=== PATIENT | female | born 1980 | race Asian ===

== ENCOUNTER 2024-05-11 21:23 | Inpatient (IN) | payer MEDICAID ==
[~2024-05-11] VITALS: Ht 152.4 cm; Wt 46.3 kg
[2024-05-11] MEDS ORDERED: iohexol 350MG/ML 100ml bottle IV ONE (21:37)
[2024-05-11] MEDS: nitroGLYCERIN 0.2mg/hour patch TD ONE (22:00)
[2024-05-11] MEDS ORDERED: NO HOME MEDS (22:02)
[2024-05-11 22:04] LABS: BASOPHILS # (AUTO) 0.1 X10'3 (0-0.2); BASOPHILS % (AUTO) 0.5 % (0-1); EOSINOPHILS % (AUTO) 0.1 % (0-6); HEMATOCRIT 33.9 % (35.0-45.0); HEMOGLOBIN 11.3 g/dl (12.0-16.0); LYMPHOCYTES # (AUTO) 1.1 X10'3 (1.1-4.8); LYMPHOCYTES % (AUTO) 8.7 % (21-51); MEAN CORPUSCULAR HEMOGLOBIN 27.2 PG (27.0-31.0); MEAN CORPUSCULAR HGB CONC 33.5 g/dL (33.0-36.5); MEAN CORPUSCULAR VOLUME 81.2 FL (78-98); MEAN PLATELET VOLUME 8.2 FL (7.4-10.4); MONOCYTES # (AUTO) 0.6 X10'3 (0-0.9); MONOCYTES % (AUTO) 4.8 % (2-12); NEUTROPHILS # (AUTO) 11.1 X10'3 (1.8-7.7); NEUTROPHILS % (AUTO) 85.9 % (42-75); PLATELET COUNT 180 X10'3 (140-440); RED BLOOD COUNT 4.17 X10'6 (4.20-5.60); RED CELL DISTRIBUTION WIDTH 16.5 % (11.5-14.5); WHITE BLOOD COUNT 12.9 X10'3 (4.5-11.0)
[2024-05-11] MEDS: aspirin 81mg tab.chew PO ONE (22:10)
[2024-05-11 22:23] LABS: ALBUMIN 3.2 G/DL (3.4-5.0); ANION GAP 8 (8-16); BLOOD UREA NITROGEN 25 MG/DL (7-18); BUN/CREATININE RATIO 15.7 (10.0-20.0); CALCIUM 8.8 MG/DL (8.5-10.1); CHLORIDE 94 MMOL/L (99-107); CREATININE 1.59 MG/DL (0.40-0.90); GLUCOSE 126 MG/DL (70-104); MAGNESIUM 1.8 MG/DL (1.5-2.4); SODIUM 131 MMOL/L (135-145); TOTAL CARBON DIOXIDE 29.3 MMOL/L (24-32); eGFR 35 ML/MIN
[2024-05-11 22:43] LABS: POTASSIUM 2.4 MMOL/L (3.5-5.1)
[2024-05-11] MEDS ORDERED: heparin 10,000 units/1 ML INJ IV ONE ×2 (22:55→23:50)
[2024-05-11] MEDS: normal saline 1000ml 1,000 ML IV ONE (23:05)
[2024-05-11 23:16] LABS: APTT 21 SECONDS (22-32); PROTHROMBIN TIME 10.2 SECONDS (9.0-12.0)
[2024-05-11 23:18] LABS: ALANINE AMINOTRANSFERASE 31 U/L (12-78); ALBUMIN/GLOBULIN RATIO 0.9 (1.1-1.5); ALKALINE PHOSPHATASE 90 IU/L (46-116); ASPARTATE AMINO TRANSFERASE 149 U/L (10-37); BILIRUBIN,DIRECT 0.1 MG/DL (0-0.3); BILIRUBIN,TOTAL 0.5 MG/DL (0.1-1.0); PRO BRAIN NATRIURETIC PEPTIDE 29358 PG/ML (0-125); TOTAL PROTEIN 6.9 G/DL (6.4-8.2)
[2024-05-11] MEDS: heparin 10,000 units/1 ML INJ IV ONE (23:31)
[2024-05-11] MEDS: metoprolol tartrate 1mg/ml inj IV SCH (23:32)
[2024-05-11] MEDS: metoprolol tartrate 50mg tablet PO ONE (23:33)
[2024-05-11] MEDS: MESSAGE TO NURSING IV ONE (23:37)
[2024-05-11] MEDS: heparin 25,000 UNIT/250ml bag 250 ML IV PRN (23:37)
[2024-05-11 23:47] LABS: URINE AMPHETAMINE SCREEN NEGATIVE (Neg); URINE BARBITUATE SCREEN NEGATIVE (Neg); URINE BENZODIAZEPINES SCREEN NEGATIVE (Neg); URINE CANNABINOID SCREEN NEGATIVE (Neg); URINE COCAINE SCREEN NEGATIVE (Neg); URINE METHADONE SCREEN NEGATIVE (Neg); URINE OPIATE SCREEN NEGATIVE (Neg); URINE PHENCYCLIDINE SCREEN NEGATIVE (Neg)
[2024-05-11] MEDS ORDERED: heparin 25,000 UNIT/250ml bag 250 ML IV PRN (23:50)
[2024-05-11] MEDS ORDERED: heparin 10,000 units/1 ML INJ IV PRN (23:50)
[2024-05-12] VITALS (29 sets, daily range): BP systolic 129–209; BP diastolic 71–122; PULSE 63–98; RESP 12–20; TEMP 97.4–98.7; O2SAT 96–99
[2024-05-12] MEDS ORDERED: magnesium sulf-water 4G/100mL 100 ML IV PRN (00:35)
[2024-05-12] MEDS ORDERED: ondansetron/PF 4mg/2ml inj IV PRN (00:35)
[2024-05-12] MEDS ORDERED: acetaminophen 325mg tablet PO PRN ×2 (00:35→10:35)
[2024-05-12] MEDS ORDERED: docusate sod 100mg capsule PO PRN (00:35)
[2024-05-12] MEDS ORDERED: magnesium sulf-water 2g/50mL 50 ML IV PRN (00:35)
[2024-05-12] MEDS ORDERED: mag hydrox/Alum hydrox/simeth 30ml oral suspension PO PRN (00:35)
[2024-05-12] MEDS ORDERED: magnesium Cl slow-release 64mg tablet PO PRN (00:35)
[2024-05-12] MEDS ORDERED: morphine 2 MG/ML inj. syringe IV PRN ×2 (00:35)
[2024-05-12 01:08] LABS: URINE HCG NEGATIVE (NEG)
[2024-05-12 01:09] LABS: BASOPHILS % (AUTO) 0.2 % (0-1); EOSINOPHILS # (AUTO) 0.1 X10'3 (0-0.9); EOSINOPHILS % (AUTO) 0.3 % (0-6); HEMOGLOBIN 10.1 g/dl (12.0-16.0); LYMPHOCYTES # (AUTO) 1.2 X10'3 (1.1-4.8); LYMPHOCYTES % (AUTO) 7.1 % (21-51); MEAN CORPUSCULAR HEMOGLOBIN 27.6 PG (27.0-31.0); MEAN CORPUSCULAR HGB CONC 33.6 g/dL (33.0-36.5); MEAN CORPUSCULAR VOLUME 82.2 FL (78-98); MEAN PLATELET VOLUME 8.4 FL (7.4-10.4); MONOCYTES # (AUTO) 0.8 X10'3 (0-0.9); MONOCYTES % (AUTO) 5.1 % (2-12); NEUTROPHILS # (AUTO) 14.3 X10'3 (1.8-7.7); NEUTROPHILS % (AUTO) 87.3 % (42-75); PLATELET COUNT 170 X10'3 (140-440); RED BLOOD COUNT 3.65 X10'6 (4.20-5.60); RED CELL DISTRIBUTION WIDTH 16.2 % (11.5-14.5); WHITE BLOOD COUNT 16.4 X10'3 (4.5-11.0)
[2024-05-12] MEDS: potassium Cl 40MEQ/1/2NS 520ml 520 ML IV PRN (02:31)
[2024-05-12 02:58] LABS: HEMOGLOBIN A1C 4.9 % (4.5-6.2)
[2024-05-12] MEDS: potassium Cl 20 mEq SR tablet PO PRN ×2 (03:02→19:51)
[2024-05-12 03:08] LABS: MAGNESIUM 1.8 MG/DL (1.5-2.4); THYROID STIMULATING HORMONE 0.77 ulU/ml (0.34-4.50)
[2024-05-12 03:33] LABS: POTASSIUM 2.1 MMOL/L (3.5-5.1)
[2024-05-12] MEDS: normal saline 1000ml 1,000 ML IV SCH (04:10)
[2024-05-12] MEDS: heparin 10,000 units/1 ML INJ IV PRN (07:27)
[2024-05-12] MEDS: MESSAGE TO NURSING IV ONE ×2 (07:28→20:20)
[2024-05-12 07:37] LABS: % IRON SATURATION 11 % (11-46); IRON 33 UG/DL (49-151); TOTAL IRON BINDING CAPACITY 290 UG/DL (259-388)
[2024-05-12 07:56] LABS: ANION GAP 8 (8-16); CHLORIDE 96 MMOL/L (99-107); FERRITIN 29 NG/ML (8-252); SODIUM 133 MMOL/L (135-145); TOTAL CARBON DIOXIDE 29.1 MMOL/L (24-32)
[2024-05-12] MEDS: K and/or MAG REPLACEMENT MC SCH (08:00)
[2024-05-12 08:08] LABS: POTASSIUM 2.7 MMOL/L (3.5-5.1)
[2024-05-12 09:00] LABS: ALBUMIN 2.7 G/DL (3.4-5.0); BLOOD UREA NITROGEN 26 MG/DL (7-18); BUN/CREATININE RATIO 17.4 (10.0-20.0); CALCIUM 8.2 MG/DL (8.5-10.1); CREATININE 1.49 MG/DL (0.40-0.90); GLUCOSE 98 MG/DL (70-104); eCRCL 34 ML/MIN; eGFR 38 ML/MIN
[2024-05-12] MEDS: guaiFENesin ER 600mg tablet PO SCH (10:35)
[2024-05-12] MEDS ORDERED: sodium bicarbonate (8.4%) inj. 150 MEQ in sodium chloride 0.45% 850 ML IV SCH (10:35)
[2024-05-12] MEDS: nitroGLYCERIN-Tridil 50MG/D5W 250 ML IV SCH (10:53)
[2024-05-12] MEDS: metoprolol tartrate 25mg tablet PO SCH (11:16)
[2024-05-12] MEDS ORDERED: LIDOcaine 1% (10mg/ml) 2ml vial ONE (11:24)
[2024-05-12] MEDS ORDERED: fentaNYL/PF 50MCG/1 ML 2ML syringe ONE (11:24)
[2024-05-12] MEDS ORDERED: verapamil 2.5 mg/ml inj IV ONE (11:24)
[2024-05-12] MEDS ORDERED: midazolam 1 mg/ML 2ml injection ONE (11:24)
[2024-05-12] MEDS ORDERED: heparin 1,000unit/ml 10ml vial 10 ML ONE (11:25)
[2024-05-12] MEDS ORDERED: iohexol 350MG/ML 100ml bottle IV ONE ×2 (11:25→12:39)
[2024-05-12] MEDS ORDERED: nitroGLYCERIN 500mcg/5mL D5W 5 ML IV ONE ×2 (11:25→12:44)
[2024-05-12] MEDS ORDERED: iohexol 350 MG/ML 50ML vial IV ONE (11:25)
[2024-05-12] MEDS: acetylcysteine 200 MG/ml 4ml vial PO SCH (11:27)
[2024-05-12] MEDS ORDERED: clopidogrel 300mg tablet ONE (13:30)
[2024-05-12] MEDS ORDERED: aspirin 325mg tablet ONE (13:30)
[2024-05-12] MEDS ORDERED: DOBUTamine-DoBUTrex 500mg/D5W 250 ML IV ONE (13:31)
[2024-05-12 13:33] LABS: CHOL/HDL RATIO 3.4 (0.00-4.99); CHOLESTEROL 235 MG/DL (0-200); HDL CHOLESTEROL 70 MG/DL (35-60); LDL CHOLESTEROL 134 MG/DL (50-100); TRIGLYCERIDES 147 MG/DL (20-135)
[2024-05-12 13:42] LABS: ETHANOL < 10 MG/DL (<10)
[2024-05-12] MEDS: sodium bicarbonate 1meq/ml inj 150 ML in sodium chloride 0.45% 1,000 ML IV SCH (14:35)
[2024-05-12] MEDS: furosemide 20 MG/2 ML vial IV ONE (15:45)
[2024-05-12] MEDS: DOBUTamine 2000 MCG/250ML BAG IV SCH (16:02)
[2024-05-12 16:04] LABS: ISTAT HGB MIX 9.2 g/dl (12.0-16.0); ISTAT Hct MIX 27 %PCV (35-45); ISTAT O2 SATURATION MIX VENOUS 48 % (60-80); ISTAT SOURCE BLNK
[2024-05-12 16:04] LABS: ISTAT HGB ART 9.2 g/dl (12.0-16.0); ISTAT Hct ART 27 %PCV (35-45); ISTAT O2 SATURATION ARTERIAL 95 % (95-98); ISTAT SOURCE BLNK
[2024-05-12 18:25] LABS: ALBUMIN 2.4 G/DL (3.4-5.0); ANION GAP 6 (8-16); BLOOD UREA NITROGEN 26 MG/DL (7-18); BUN/CREATININE RATIO 17.1 (10.0-20.0); CALCIUM 7.8 MG/DL (8.5-10.1); CHLORIDE 98 MMOL/L (99-107); CREATININE 1.52 MG/DL (0.40-0.90); GLUCOSE 155 MG/DL (70-104); POTASSIUM 3.2 MMOL/L (3.5-5.1); SODIUM 134 MMOL/L (135-145); TOTAL CARBON DIOXIDE 30.3 MMOL/L (24-32); eCRCL 34 ML/MIN; eGFR 37 ML/MIN
[2024-05-12] MEDS: atorvastatin 20mg tablet PO SCH (19:51)
[2024-05-12] MEDS: hydrALAZINE 20mg/ml inj. IV PRN (20:00)
[2024-05-12] MEDS ORDERED: acetylcysteine 200 MG/ml 4ml vial PO SCH (20:00)
[2024-05-13] VITALS (24 sets, daily range): BP systolic 123–187; BP diastolic 69–101; PULSE 65–106; RESP 10–17; TEMP 97–98.7; O2SAT 95–99
[2024-05-13 02:06] LABS: BASOPHILS % (AUTO) 0.4 % (0-1); EOSINOPHILS % (AUTO) 0.4 % (0-6); HEMATOCRIT 29.9 % (35.0-45.0); LYMPHOCYTES % (AUTO) 7.8 % (21-51); MEAN CORPUSCULAR HEMOGLOBIN 27.9 PG (27.0-31.0); MEAN CORPUSCULAR HGB CONC 33.5 g/dL (33.0-36.5); MEAN CORPUSCULAR VOLUME 83.3 FL (78-98); MEAN PLATELET VOLUME 8.3 FL (7.4-10.4); MONOCYTES # (AUTO) 0.7 X10'3 (0-0.9); MONOCYTES % (AUTO) 5.5 % (2-12); NEUTROPHILS # (AUTO) 10.8 X10'3 (1.8-7.7); NEUTROPHILS % (AUTO) 85.9 % (42-75); PLATELET COUNT 151 X10'3 (140-440); RED BLOOD COUNT 3.58 X10'6 (4.20-5.60); RED CELL DISTRIBUTION WIDTH 16.8 % (11.5-14.5); WHITE BLOOD COUNT 12.6 X10'3 (4.5-11.0)
[2024-05-13 02:28] LABS: ALANINE AMINOTRANSFERASE 50 U/L (12-78); ALBUMIN 2.9 G/DL (3.4-5.0); ALBUMIN/GLOBULIN RATIO 0.9 (1.1-1.5); ALKALINE PHOSPHATASE 78 IU/L (46-116); ANION GAP 6 (8-16); ASPARTATE AMINO TRANSFERASE 228 U/L (10-37); BILIRUBIN,TOTAL 0.5 MG/DL (0.1-1.0); BLOOD UREA NITROGEN 25 MG/DL (7-18); BUN/CREATININE RATIO 16.2 (10.0-20.0); CALCIUM 8.4 MG/DL (8.5-10.1); CHLORIDE 98 MMOL/L (99-107); CHOL/HDL RATIO 3.4 (0.00-4.99); CHOLESTEROL 255 MG/DL (0-200); CREATININE 1.54 MG/DL (0.40-0.90); GLUCOSE 128 MG/DL (70-104); HDL CHOLESTEROL 75 MG/DL (35-60); LDL CHOLESTEROL 137 MG/DL (50-100); MAGNESIUM 1.7 MG/DL (1.5-2.4); PRO BRAIN NATRIURETIC PEPTIDE 17991 PG/ML (0-125); SODIUM 138 MMOL/L (135-145); TOTAL CARBON DIOXIDE 34.2 MMOL/L (24-32); TOTAL PROTEIN 6.3 G/DL (6.4-8.2); TRIGLYCERIDES 168 MG/DL (20-135); eCRCL 33 ML/MIN; eGFR 36 ML/MIN
[2024-05-13 02:33] LABS: POTASSIUM 2.8 MMOL/L (3.5-5.1)
[2024-05-13] MEDS: MESSAGE TO NURSING IV ONE (03:07)
[2024-05-13] MEDS: labetalol 20mg/4ml (5mg/ml) syringe IV PRN (04:46)
[2024-05-13] MEDS: aspirin 81mg, enteric-coated 1 TAB TABLET.DR PO SCH (08:00)
[2024-05-13] MEDS ORDERED: clopidogrel 75mg tablet PO SCH ×2 (08:00→20:00)
[2024-05-13] MEDS ORDERED: heparin 1,000unit/ml 10ml vial 10 ML ONE (08:19)
[2024-05-13] MEDS ORDERED: LIDOcaine 1% (10mg/ml) 2ml vial ONE (08:19)
[2024-05-13] MEDS ORDERED: iohexol 350MG/ML 100ml bottle IV ONE ×2 (08:19→09:43)
[2024-05-13] MEDS ORDERED: verapamil 2.5 mg/ml inj IV ONE (08:19)
[2024-05-13] MEDS ORDERED: fentaNYL/PF 50MCG/1 ML 2ML syringe ONE (08:19)
[2024-05-13] MEDS ORDERED: midazolam 1 mg/ML 2ml injection ONE (08:19)
[2024-05-13] MEDS ORDERED: nitroGLYCERIN 500mcg/5mL D5W 5 ML IV ONE ×2 (08:25→09:47)
[2024-05-13] MEDS: clopidogrel 75mg tablet PO SCH (08:35)
[2024-05-13] MEDS ORDERED: iohexol 350 MG/ML 50ML vial IV ONE (09:28)
[2024-05-13] MEDS ORDERED: clopidogrel 300mg tablet ONE (10:03)
[2024-05-13] MEDS ORDERED: hydrALAZINE 20mg/ml inj. ONE (10:16)
[2024-05-13] MEDS ORDERED: metoprolol tartrate 25mg tablet PO SCH (10:32)
[2024-05-13] MEDS: potassium Cl 20 mEq SR tablet PO ONE (11:24)
[2024-05-13] MEDS: metoprolol tartrate 25mg tablet PO SCH (11:24)
[2024-05-13] MEDS: furosemide 20 MG/2 ML vial IV ONE (11:24)
[2024-05-13] MEDS: losartan 50mg tablet PO SCH (11:52)
[2024-05-13 13:37] LABS: ACTH, PLASMA 29.6 pg/mL (7.2-63.3)
[2024-05-13] MEDS: spironolactone 25 MG tablet PO ONE (13:47)
[2024-05-13] MEDS: heparin, porcine 5000 units/ml vial SQ SCH (19:15)
[2024-05-13] MEDS: hydrALAZINE 20mg/ml inj. IV PRN (19:32)
[2024-05-14] VITALS (23 sets, daily range): BP systolic 113–176; BP diastolic 11–98; PULSE 64–99; RESP 10–19; TEMP 97.3–98.1; O2SAT 96–98
[2024-05-14 00:26] LABS: ABG BASE EXCESS 8.3 mmol/L (-2.0-3.0); ABG OXYGEN SATURATION 97.6 % (94.0-98.0); ABG PCO2 (T) 34.1 mmHg (32.0-45.0); ABG PH (T) 7.574 (7.350-7.450); ABG PO2 (T) 88.5 mmHg (83.0-108.0); ALLEN'S TEST Modified; FCOHb 1.1 % (0.5-1.5); FHHb 2.4 % (0.0-5.0); FMetHb 0.3 % (0.0-1.5); FO2Hb 96.2 % (94.0-98.0); MODE ROOM AIR; PATIENT TEMPERATURE 36.3; TOTAL HEMOGLOBIN 8.4 G/dl (12.0-16.0)
[2024-05-14 06:37] LABS: BASOPHILS % (AUTO) 0.5 % (0-1); EOSINOPHILS # (AUTO) 0.1 X10'3 (0-0.9); EOSINOPHILS % (AUTO) 0.9 % (0-6); HEMOGLOBIN 7.9 g/dl (12.0-16.0); LYMPHOCYTES % (AUTO) 11.6 % (21-51); MEAN CORPUSCULAR HEMOGLOBIN 27.8 PG (27.0-31.0); MEAN CORPUSCULAR HGB CONC 32.9 g/dL (33.0-36.5); MEAN CORPUSCULAR VOLUME 84.5 FL (78-98); MEAN PLATELET VOLUME 8.7 FL (7.4-10.4); MONOCYTES # (AUTO) 0.6 X10'3 (0-0.9); MONOCYTES % (AUTO) 7.2 % (2-12); NEUTROPHILS # (AUTO) 6.7 X10'3 (1.8-7.7); NEUTROPHILS % (AUTO) 79.8 % (42-75); PLATELET COUNT 136 X10'3 (140-440); RED BLOOD COUNT 2.84 X10'6 (4.20-5.60); WHITE BLOOD COUNT 8.4 X10'3 (4.5-11.0)
[2024-05-14 07:26] LABS: ALANINE AMINOTRANSFERASE 35 U/L (12-78); ALBUMIN 2.6 G/DL (3.4-5.0); ALBUMIN/GLOBULIN RATIO 0.8 (1.1-1.5); ALKALINE PHOSPHATASE 60 IU/L (46-116); ANION GAP 6 (8-16); ASPARTATE AMINO TRANSFERASE 99 U/L (10-37); BILIRUBIN,TOTAL 0.5 MG/DL (0.1-1.0); BLOOD UREA NITROGEN 19 MG/DL (7-18); BUN/CREATININE RATIO 12.5 (10.0-20.0); CALCIUM 8.6 MG/DL (8.5-10.1); CHLORIDE 104 MMOL/L (99-107); CREATININE 1.52 MG/DL (0.40-0.90); GLUCOSE 99 MG/DL (70-104); MAGNESIUM 1.8 MG/DL (1.5-2.4); POTASSIUM 3.5 MMOL/L (3.5-5.1); SODIUM 144 MMOL/L (135-145); THYROID STIMULATING HORMONE 0.89 ulU/ml (0.34-4.50); TOTAL CARBON DIOXIDE 34.2 MMOL/L (24-32); TOTAL PROTEIN 5.8 G/DL (6.4-8.2); eCRCL 34 ML/MIN; eGFR 37 ML/MIN
[2024-05-14] MEDS: spironolactone 25 MG tablet PO SCH (09:32)
[2024-05-14] MEDS: LidoCAINE 2% Topical Jelly 11mL syringe (UROJET) TOP ONE (11:35)
[2024-05-14] MEDS: LORazepam 2 mg/ml vial IV ONE (12:55)
[2024-05-14] MEDS: diazepam inj 5 MG/ML inj. IV ONE (13:50)
[2024-05-14 16:41] LABS: BILIRUBIN,URINE NEGATIVE (Neg); CLARITY,URINE CLEAR (Clear); COLOR,URINE YELLOW (Yellow); GLUCOSE, URINE NEGATIVE (Neg); KETONES,URINE NEGATIVE (Neg); LEUKOCYTE ESTERASE ,URINE NEGATIVE (Neg); NITRITES, URINE NEGATIVE (Neg); OCCULT BLOOD,URINE TRACE-INTACT (Neg); PH,URINE 8.5 (4.8-8.0); PROTEIN,URINE 100 mg/dl (Neg)
[2024-05-14 16:47] LABS: UA COLLECTION TYPE NON-SPECIFIED
[2024-05-14 16:48] LABS: AMORPHOUS PHOSPHATES 1+; BACTERIA,URINE NONE SEEN /HPF (Neg); RBC,URINE 0-2 /HPF (0-2); SQUAMOUS EPITHELIAL CELL,UR FEW /LPF (FEW); WBC,URINE 0-4 /HPF (0-4)
[2024-05-14 16:53] LABS: TOTAL PROTEIN,URINE RANDOM 93.4 MG/DL
[2024-05-14 18:46] LABS: BASOPHILS % (AUTO) 0.3 % (0-1); EOSINOPHILS # (AUTO) 0.2 X10'3 (0-0.9); EOSINOPHILS % (AUTO) 2.1 % (0-6); HEMATOCRIT 24.7 % (35.0-45.0); HEMOGLOBIN 8.1 g/dl (12.0-16.0); LYMPHOCYTES # (AUTO) 1.1 X10'3 (1.1-4.8); MEAN CORPUSCULAR HEMOGLOBIN 27.9 PG (27.0-31.0); MEAN CORPUSCULAR HGB CONC 32.8 g/dL (33.0-36.5); MEAN CORPUSCULAR VOLUME 85.2 FL (78-98); MEAN PLATELET VOLUME 8.4 FL (7.4-10.4); MONOCYTES # (AUTO) 0.6 X10'3 (0-0.9); MONOCYTES % (AUTO) 7.5 % (2-12); NEUTROPHILS # (AUTO) 6.4 X10'3 (1.8-7.7); NEUTROPHILS % (AUTO) 77.1 % (42-75); PLATELET COUNT 156 X10'3 (140-440); RED CELL DISTRIBUTION WIDTH 17.6 % (11.5-14.5); WHITE BLOOD COUNT 8.4 X10'3 (4.5-11.0)
[2024-05-14 19:11] LABS: ALANINE AMINOTRANSFERASE 31 U/L (12-78); ALBUMIN 2.6 G/DL (3.4-5.0); ALBUMIN/GLOBULIN RATIO 0.7 (1.1-1.5); ALKALINE PHOSPHATASE 65 IU/L (46-116); ANION GAP 4 (8-16); ASPARTATE AMINO TRANSFERASE 84 U/L (10-37); BILIRUBIN,TOTAL 0.5 MG/DL (0.1-1.0); BLOOD UREA NITROGEN 22 MG/DL (7-18); BUN/CREATININE RATIO 12.7 (10.0-20.0); CALCIUM 8.9 MG/DL (8.5-10.1); CHLORIDE 103 MMOL/L (99-107); CREATININE 1.73 MG/DL (0.40-0.90); GLUCOSE 103 MG/DL (70-104); POTASSIUM 3.5 MMOL/L (3.5-5.1); SODIUM 138 MMOL/L (135-145); TOTAL CARBON DIOXIDE 30.7 MMOL/L (24-32); TOTAL PROTEIN 6.2 G/DL (6.4-8.2); eCRCL 30 ML/MIN; eGFR 32 ML/MIN
[2024-05-15] VITALS (10 sets, daily range): BP systolic 114–167; BP diastolic 65–100; PULSE 63–85; RESP 12–20; TEMP 97.5–98.8; O2SAT 96–99
[2024-05-15 06:49] LABS: BASOPHILS % (AUTO) 0.4 % (0-1); EOSINOPHILS # (AUTO) 0.2 X10'3 (0-0.9); EOSINOPHILS % (AUTO) 2.7 % (0-6); HEMATOCRIT 22.7 % (35.0-45.0); HEMOGLOBIN 7.5 g/dl (12.0-16.0); LYMPHOCYTES # (AUTO) 0.6 X10'3 (1.1-4.8); LYMPHOCYTES % (AUTO) 7.7 % (21-51); MEAN CORPUSCULAR VOLUME 84.9 FL (78-98); MEAN PLATELET VOLUME 8.5 FL (7.4-10.4); MONOCYTES # (AUTO) 0.4 X10'3 (0-0.9); MONOCYTES % (AUTO) 4.7 % (2-12); NEUTROPHILS # (AUTO) 6.9 X10'3 (1.8-7.7); NEUTROPHILS % (AUTO) 84.5 % (42-75); PLATELET COUNT 148 X10'3 (140-440); RED BLOOD COUNT 2.67 X10'6 (4.20-5.60); RED CELL DISTRIBUTION WIDTH 17.6 % (11.5-14.5); WHITE BLOOD COUNT 8.2 X10'3 (4.5-11.0)
[2024-05-15 07:31] LABS: ALANINE AMINOTRANSFERASE 38 U/L (12-78); ALBUMIN 2.6 G/DL (3.4-5.0); ALBUMIN/GLOBULIN RATIO 0.8 (1.1-1.5); ALKALINE PHOSPHATASE 62 IU/L (46-116); ANION GAP 8 (8-16); ASPARTATE AMINO TRANSFERASE 64 U/L (10-37); BILIRUBIN,TOTAL 0.5 MG/DL (0.1-1.0); BLOOD UREA NITROGEN 24 MG/DL (7-18); BUN/CREATININE RATIO 12.4 (10.0-20.0); CALCIUM 8.7 MG/DL (8.5-10.1); CHLORIDE 104 MMOL/L (99-107); CREATININE 1.93 MG/DL (0.40-0.90); GLUCOSE 92 MG/DL (70-104); MAGNESIUM 1.9 MG/DL (1.5-2.4); POTASSIUM 3.4 MMOL/L (3.5-5.1); SODIUM 143 MMOL/L (135-145); TOTAL CARBON DIOXIDE 31.5 MMOL/L (24-32); eCRCL 26 ML/MIN; eGFR 28 ML/MIN
[2024-05-15] MEDS: furosemide 20 MG/2 ML vial IV SCH (07:50)
[2024-05-15 11:29] LABS: LACTATE DEHYDROGENASE 784 U/L (81-234)
[2024-05-15] MEDS: diazepam inj 5 MG/ML inj. IV PRN (12:23)
[2024-05-15] MEDS: diazepam inj 5 MG/ML inj. IV ONE ×2 (15:50→18:14)
[2024-05-15] MEDS ORDERED: potassium Cl 20 mEq SR tablet PO PRN ×2 (16:15)
[2024-05-15] MEDS ORDERED: potassium Cl 40MEQ/1/2NS 520ml 520 ML IV PRN (16:15)
[2024-05-15] MEDS ORDERED: magnesium sulf-water 2g/50mL 50 ML IV PRN (16:15)
[2024-05-15] MEDS ORDERED: magnesium Cl slow-release 64mg tablet PO PRN (16:15)
[2024-05-15] MEDS ORDERED: magnesium sulf-water 4G/100mL 100 ML IV PRN (16:15)
[2024-05-15 20:03] LABS: BASOPHILS % (AUTO) 0.5 % (0-1); EOSINOPHILS # (AUTO) 0.3 X10'3 (0-0.9); EOSINOPHILS % (AUTO) 3.3 % (0-6); HEMATOCRIT 25.7 % (35.0-45.0); HEMOGLOBIN 8.5 g/dl (12.0-16.0); LYMPHOCYTES # (AUTO) 1.4 X10'3 (1.1-4.8); LYMPHOCYTES % (AUTO) 15.8 % (21-51); MEAN CORPUSCULAR HEMOGLOBIN 28.1 PG (27.0-31.0); MEAN CORPUSCULAR HGB CONC 33.1 g/dL (33.0-36.5); MEAN CORPUSCULAR VOLUME 84.9 FL (78-98); MEAN PLATELET VOLUME 8.8 FL (7.4-10.4); MONOCYTES # (AUTO) 0.4 X10'3 (0-0.9); MONOCYTES % (AUTO) 5.1 % (2-12); NEUTROPHILS # (AUTO) 6.5 X10'3 (1.8-7.7); NEUTROPHILS % (AUTO) 75.3 % (42-75); PLATELET COUNT 170 X10'3 (140-440); RED BLOOD COUNT 3.02 X10'6 (4.20-5.60); RED CELL DISTRIBUTION WIDTH 17.4 % (11.5-14.5); WHITE BLOOD COUNT 8.7 X10'3 (4.5-11.0)
[2024-05-16] VITALS (19 sets, daily range): BP systolic 111–193; BP diastolic 64–120; PULSE 59–176; RESP 11–19; TEMP 96.4–98; O2SAT 95–98
[2024-05-16] MEDS ORDERED: nitroGLYCERIN-Tridil 50MG/D5W 250 ML IV PRN ×3 (07:00→10:25)
[2024-05-16 07:38] LABS: RED BLOOD COUNT 2.91 X10'6 (4.20-5.60); RETICULOCYTE % (AUTO) 3.3 % (0.5-1.5)
[2024-05-16 07:47] LABS: BASOPHILS % (AUTO) 0.4 % (0-1); EOSINOPHILS # (AUTO) 0.3 X10'3 (0-0.9); EOSINOPHILS % (AUTO) 4.2 % (0-6); HEMATOCRIT 24.6 % (35.0-45.0); HEMOGLOBIN 8.1 g/dl (12.0-16.0); LYMPHOCYTES % (AUTO) 13.2 % (21-51); MEAN CORPUSCULAR HEMOGLOBIN 28.1 PG (27.0-31.0); MEAN CORPUSCULAR HGB CONC 32.9 g/dL (33.0-36.5); MEAN CORPUSCULAR VOLUME 85.5 FL (78-98); MONOCYTES # (AUTO) 0.5 X10'3 (0-0.9); MONOCYTES % (AUTO) 6.5 % (2-12); NEUTROPHILS # (AUTO) 5.9 X10'3 (1.8-7.7); NEUTROPHILS % (AUTO) 75.7 % (42-75); PLATELET COUNT 188 X10'3 (140-440); RED BLOOD COUNT 2.88 X10'6 (4.20-5.60); RED CELL DISTRIBUTION WIDTH 17.3 % (11.5-14.5); WHITE BLOOD COUNT 7.8 X10'3 (4.5-11.0)
[2024-05-16] MEDS: K and/or MAG REPLACEMENT MC SCH (08:00)
[2024-05-16 08:04] LABS: ALANINE AMINOTRANSFERASE 50 U/L (12-78); ALBUMIN 2.5 G/DL (3.4-5.0); ALBUMIN/GLOBULIN RATIO 0.7 (1.1-1.5); ALKALINE PHOSPHATASE 73 IU/L (46-116); ANION GAP 8 (8-16); ASPARTATE AMINO TRANSFERASE 72 U/L (10-37); BILIRUBIN,TOTAL 0.4 MG/DL (0.1-1.0); BLOOD UREA NITROGEN 32 MG/DL (7-18); BUN/CREATININE RATIO 13.7 (10.0-20.0); CALCIUM 8.1 MG/DL (8.5-10.1); CHLORIDE 104 MMOL/L (99-107); CREATININE 2.33 MG/DL (0.40-0.90); GLUCOSE 91 MG/DL (70-104); MAGNESIUM 1.9 MG/DL (1.5-2.4); POTASSIUM 3.6 MMOL/L (3.5-5.1); SODIUM 138 MMOL/L (135-145); TOTAL CARBON DIOXIDE 26.1 MMOL/L (24-32); TOTAL PROTEIN 6.3 G/DL (6.4-8.2); eCRCL 22 ML/MIN; eGFR 23 ML/MIN
[2024-05-16 08:12] LABS: COMPLEMENT C3, SERUM 96 mg/dL (82-167); COMPLEMENT C4, SERUM 31 mg/dL (12-38)
[2024-05-16] MEDS: aspirin 81mg, enteric-coated 1 TAB TABLET.DR PO SCH (09:33)
[2024-05-16] MEDS: amLODIPine 5mg tablet PO SCH (09:43)
[2024-05-16 11:12] LABS: METANEPHRINE, PL 39.1 pg/mL (0.0-88.0); NORMETANEPHRINE, PL 194.5 pg/mL (0.0-218.9)
[2024-05-16 11:12] LABS: ANTI-DSDNA ANTIBODIES 1 IU/mL (0-9); ANTINUCLEAR ANTIBODIES Negative (Negative)
[2024-05-16] MEDS: diazepam inj 5 MG/ML inj. IV ONE (14:46)
[2024-05-16] MEDS: iron sucrose complex injection 200 MG in normal saline 100ml IV soln 100 ML IV SCH (14:50)
[2024-05-16 15:55] LABS: PRO BRAIN NATRIURETIC PEPTIDE 8311 PG/ML (0-125)
[2024-05-16] MEDS: magnesium hydroxide 30ml (MOM) UD suspension PO PRN (17:16)
[2024-05-16] MEDS: spironolactone 25 MG tablet PO SCH (17:16)
[2024-05-16] MEDS: losartan 50mg tablet PO SCH (21:54)
[2024-05-17] VITALS (8 sets, daily range): BP systolic 119–147; BP diastolic 69–97; PULSE 57–70; RESP 10–17; TEMP 97.1–97.9; O2SAT 61–100
[2024-05-17 05:32] LABS: OCCULT BLOOD STOOL NEGATIVE (Neg)
[2024-05-17 06:25] LABS: BASOPHILS % (AUTO) 0.4 % (0-1); EOSINOPHILS # (AUTO) 0.3 X10'3 (0-0.9); EOSINOPHILS % (AUTO) 3.2 % (0-6); HEMATOCRIT 26.7 % (35.0-45.0); HEMOGLOBIN 8.8 g/dl (12.0-16.0); LYMPHOCYTES % (AUTO) 10.8 % (21-51); MEAN CORPUSCULAR HGB CONC 32.8 g/dL (33.0-36.5); MEAN CORPUSCULAR VOLUME 85.4 FL (78-98); MEAN PLATELET VOLUME 9.1 FL (7.4-10.4); MONOCYTES # (AUTO) 0.8 X10'3 (0-0.9); MONOCYTES % (AUTO) 8.3 % (2-12); NEUTROPHILS # (AUTO) 7.4 X10'3 (1.8-7.7); NEUTROPHILS % (AUTO) 77.3 % (42-75); PLATELET COUNT 209 X10'3 (140-440); RED BLOOD COUNT 3.13 X10'6 (4.20-5.60); RED CELL DISTRIBUTION WIDTH 17.4 % (11.5-14.5); WHITE BLOOD COUNT 9.5 X10'3 (4.5-11.0)
[2024-05-17 06:57] LABS: ALANINE AMINOTRANSFERASE 63 U/L (12-78); ALBUMIN 2.5 G/DL (3.4-5.0); ALBUMIN/GLOBULIN RATIO 0.7 (1.1-1.5); ALKALINE PHOSPHATASE 76 IU/L (46-116); ANION GAP 10 (8-16); ASPARTATE AMINO TRANSFERASE 65 U/L (10-37); BILIRUBIN,TOTAL 0.3 MG/DL (0.1-1.0); BLOOD UREA NITROGEN 31 MG/DL (7-18); BUN/CREATININE RATIO 13.4 (10.0-20.0); CALCIUM 8.3 MG/DL (8.5-10.1); CHLORIDE 103 MMOL/L (99-107); CREATININE 2.31 MG/DL (0.40-0.90); GLUCOSE 93 MG/DL (70-104); POTASSIUM 3.7 MMOL/L (3.5-5.1); SODIUM 137 MMOL/L (135-145); TOTAL CARBON DIOXIDE 23.9 MMOL/L (24-32); TOTAL PROTEIN 6.2 G/DL (6.4-8.2); eCRCL 22 ML/MIN; eGFR 23 ML/MIN
[2024-05-17] MEDS: amLODIPine 5mg tablet PO SCH (09:11)
[2024-05-17 13:24] LABS: ATYPICAL PANCA <1:20 titer (Neg:<1:20); CYTOPLASMIC (C-ANCA) <1:20 titer (Neg:<1:20); PERINUCLEAR (P-ANCA) <1:20 titer (Neg:<1:20)
[2024-05-18] VITALS (8 sets, daily range): BP systolic 108–138; BP diastolic 69–91; PULSE 58–68; RESP 12–18; TEMP 97–97.8; O2SAT 95–100
[2024-05-18 08:57] LABS: BASOPHILS % (AUTO) 0.5 % (0-1); EOSINOPHILS # (AUTO) 0.3 X10'3 (0-0.9); EOSINOPHILS % (AUTO) 4.4 % (0-6); HEMATOCRIT 28.6 % (35.0-45.0); HEMOGLOBIN 9.1 g/dl (12.0-16.0); LYMPHOCYTES # (AUTO) 1.3 X10'3 (1.1-4.8); LYMPHOCYTES % (AUTO) 20.2 % (21-51); MEAN CORPUSCULAR HEMOGLOBIN 27.6 PG (27.0-31.0); MEAN CORPUSCULAR VOLUME 86.2 FL (78-98); MEAN PLATELET VOLUME 8.7 FL (7.4-10.4); MONOCYTES # (AUTO) 0.5 X10'3 (0-0.9); MONOCYTES % (AUTO) 7.9 % (2-12); NEUTROPHILS # (AUTO) 4.3 X10'3 (1.8-7.7); PLATELET COUNT 273 X10'3 (140-440); RED BLOOD COUNT 3.31 X10'6 (4.20-5.60); RED CELL DISTRIBUTION WIDTH 17.1 % (11.5-14.5); WHITE BLOOD COUNT 6.5 X10'3 (4.5-11.0)
[2024-05-18 09:10] LABS: ALBUMIN 2.7 G/DL (3.4-5.0); ANION GAP 9 (8-16); BLOOD UREA NITROGEN 30 MG/DL (7-18); BUN/CREATININE RATIO 13.3 (10.0-20.0); CALCIUM 8.6 MG/DL (8.5-10.1); CHLORIDE 104 MMOL/L (99-107); CREATININE 2.26 MG/DL (0.40-0.90); GLUCOSE 91 MG/DL (70-104); SODIUM 138 MMOL/L (135-145); TOTAL CARBON DIOXIDE 24.9 MMOL/L (24-32); eCRCL 23 ML/MIN; eGFR 23 ML/MIN
[2024-05-19] VITALS (8 sets, daily range): BP systolic 105–146; BP diastolic 73–91; PULSE 60–72; RESP 15–20; TEMP 97.1–97.7; O2SAT 97–100
[2024-05-19 06:32] LABS: BASOPHILS % (AUTO) 0.7 % (0-1); EOSINOPHILS # (AUTO) 0.3 X10'3 (0-0.9); EOSINOPHILS % (AUTO) 3.8 % (0-6); HEMATOCRIT 28.7 % (35.0-45.0); HEMOGLOBIN 9.3 g/dl (12.0-16.0); LYMPHOCYTES # (AUTO) 1.3 X10'3 (1.1-4.8); MEAN CORPUSCULAR HEMOGLOBIN 27.9 PG (27.0-31.0); MEAN CORPUSCULAR HGB CONC 32.4 g/dL (33.0-36.5); MONOCYTES # (AUTO) 0.6 X10'3 (0-0.9); MONOCYTES % (AUTO) 8.7 % (2-12); NEUTROPHILS # (AUTO) 4.5 X10'3 (1.8-7.7); NEUTROPHILS % (AUTO) 66.8 % (42-75); PLATELET COUNT 289 X10'3 (140-440); RED BLOOD COUNT 3.34 X10'6 (4.20-5.60); RED CELL DISTRIBUTION WIDTH 17.1 % (11.5-14.5); WHITE BLOOD COUNT 6.7 X10'3 (4.5-11.0)
[2024-05-19 06:44] LABS: ALBUMIN 2.6 G/DL (3.4-5.0); ANION GAP 10 (8-16); BLOOD UREA NITROGEN 33 MG/DL (7-18); BUN/CREATININE RATIO 14.4 (10.0-20.0); CALCIUM 8.6 MG/DL (8.5-10.1); CHLORIDE 106 MMOL/L (99-107); CREATININE 2.29 MG/DL (0.40-0.90); GLUCOSE 89 MG/DL (70-104); POTASSIUM 4.2 MMOL/L (3.5-5.1); SODIUM 136 MMOL/L (135-145); TOTAL CARBON DIOXIDE 19.7 MMOL/L (24-32); eCRCL 22 ML/MIN; eGFR 23 ML/MIN
[2024-05-19 08:11] LABS: ANTIMYELOPEROXIDASE ABS <0.2 units (0.0-0.9); ANTIPROTEINASE 3 ABS <0.2 units (0.0-0.9)
[2024-05-19 09:51] LABS: PRO BRAIN NATRIURETIC PEPTIDE 4550 PG/ML (0-125)
[2024-05-19 19:40] LABS: RENIN, PLASMA 21 ng/mL/hr (.)
[2024-05-20] VITALS (9 sets, daily range): BP systolic 121–171; BP diastolic 67–107; PULSE 60–71; RESP 13–18; TEMP 96.9–98.9; O2SAT 95–100
[2024-05-20 05:20] LABS: ALDOSTERONE 10 ng/dL (.)
[2024-05-20 07:14] LABS: BASOPHILS % (AUTO) 0.6 % (0-1); EOSINOPHILS # (AUTO) 0.2 X10'3 (0-0.9); EOSINOPHILS % (AUTO) 3.4 % (0-6); HEMATOCRIT 28.4 % (35.0-45.0); HEMOGLOBIN 9.3 g/dl (12.0-16.0); LYMPHOCYTES # (AUTO) 1.3 X10'3 (1.1-4.8); LYMPHOCYTES % (AUTO) 18.9 % (21-51); MEAN CORPUSCULAR HEMOGLOBIN 28.1 PG (27.0-31.0); MEAN CORPUSCULAR HGB CONC 32.7 g/dL (33.0-36.5); MEAN PLATELET VOLUME 8.8 FL (7.4-10.4); MONOCYTES # (AUTO) 0.7 X10'3 (0-0.9); MONOCYTES % (AUTO) 9.8 % (2-12); NEUTROPHILS # (AUTO) 4.7 X10'3 (1.8-7.7); NEUTROPHILS % (AUTO) 67.3 % (42-75); PLATELET COUNT 336 X10'3 (140-440); RED CELL DISTRIBUTION WIDTH 16.5 % (11.5-14.5)
[2024-05-20 08:00] LABS: ALBUMIN 2.6 G/DL (3.4-5.0); ANION GAP 11 (8-16); BLOOD UREA NITROGEN 33 MG/DL (7-18); BUN/CREATININE RATIO 15.6 (10.0-20.0); CALCIUM 8.7 MG/DL (8.5-10.1); CHLORIDE 108 MMOL/L (99-107); CREATININE 2.12 MG/DL (0.40-0.90); GLUCOSE 93 MG/DL (70-104); POTASSIUM 4.2 MMOL/L (3.5-5.1); SODIUM 140 MMOL/L (135-145); eCRCL 24 ML/MIN; eGFR 25 ML/MIN
[2024-05-21 02:00] VITALS: BP 120/64; PULSE 72; RESP 14; TEMP 97.5; O2SAT 97
[2024-05-21 06:43] LABS: BASOPHILS # (AUTO) 0.1 X10'3 (0-0.2); BASOPHILS % (AUTO) 0.6 % (0-1); EOSINOPHILS # (AUTO) 0.2 X10'3 (0-0.9); HEMATOCRIT 30.8 % (35.0-45.0); LYMPHOCYTES # (AUTO) 1.2 X10'3 (1.1-4.8); LYMPHOCYTES % (AUTO) 13.5 % (21-51); MEAN CORPUSCULAR HEMOGLOBIN 28.1 PG (27.0-31.0); MEAN CORPUSCULAR HGB CONC 32.4 g/dL (33.0-36.5); MEAN CORPUSCULAR VOLUME 86.8 FL (78-98); MEAN PLATELET VOLUME 8.4 FL (7.4-10.4); MONOCYTES # (AUTO) 0.8 X10'3 (0-0.9); MONOCYTES % (AUTO) 9.3 % (2-12); NEUTROPHILS # (AUTO) 6.6 X10'3 (1.8-7.7); NEUTROPHILS % (AUTO) 74.6 % (42-75); PLATELET COUNT 367 X10'3 (140-440); RED BLOOD COUNT 3.55 X10'6 (4.20-5.60); RED CELL DISTRIBUTION WIDTH 16.8 % (11.5-14.5); WHITE BLOOD COUNT 8.9 X10'3 (4.5-11.0)
[2024-05-21 07:19] LABS: ALBUMIN 2.8 G/DL (3.4-5.0); ANION GAP 6 (8-16); BLOOD UREA NITROGEN 31 MG/DL (7-18); BUN/CREATININE RATIO 15.2 (10.0-20.0); CALCIUM 8.8 MG/DL (8.5-10.1); CHLORIDE 109 MMOL/L (99-107); CREATININE 2.04 MG/DL (0.40-0.90); GLUCOSE 99 MG/DL (70-104); POTASSIUM 4.6 MMOL/L (3.5-5.1); SODIUM 135 MMOL/L (135-145); eCRCL 25 ML/MIN; eGFR 26 ML/MIN
[2024-05-21 07:25] VITALS: BP 136/85; PULSE 68; RESP 14; TEMP 97.3; O2SAT 97
[2024-05-21 08:00] VITALS: RESP 14; O2SAT 97
[2024-05-21 11:58] VITALS: BP 129/82; PULSE 60; RESP 15; TEMP 97.8; O2SAT 100
[2024-05-21 15:35] VITALS: BP 131/81; PULSE 66; RESP 16; TEMP 97.2; O2SAT 100
[2024-05-21 18:00] VITALS: BP 157/90; PULSE 70; RESP 15; TEMP 97.6; O2SAT 100
== END 2024-05-21 18:45 | DRG 174 ==
LOC: ER 21:24 → ED HOLD 23:12 → PCU 3S 05-12 02:39
PROVIDERS: ADMIT Internal Medicine; ATTEND Internal Medicine
PROC: 027034Z Dilation of Coronary Artery, One Artery with Drug-eluting Intraluminal Device, Percutaneous Approach (ICD-10-PCS; 2024-05-12)
PROC: B2111ZZ Fluoroscopy of Multiple Coronary Arteries using Low Osmolar Contrast (ICD-10-PCS; 2024-05-12)
PROC: B2151ZZ Fluoroscopy of Left Heart using Low Osmolar Contrast (ICD-10-PCS; 2024-05-12)
PROC: 4A023N8 Measurement of Cardiac Sampling and Pressure, Bilateral, Percutaneous Approach (ICD-10-PCS; 2024-05-12)
PROC: 027035Z Dilation of Coronary Artery, One Artery with Two Drug-eluting Intraluminal Devices, Percutaneous Approach (ICD-10-PCS; 2024-05-13)
PROC: 4A00X4Z Measurement of Central Nervous Electrical Activity, External Approach (ICD-10-PCS; principal; 2024-05-14)
DX: I21.4 Non-ST elevation (NSTEMI) myocardial infarction (principal); G93.6 Cerebral edema; I63.9 Cerebral infarction, unspecified; N17.0 Acute kidney failure with tubular necrosis; I67.4 Hypertensive encephalopathy; I50.21 Acute systolic (congestive) heart failure; E87.1 Hypo-osmolality and hyponatremia; D69.6 Thrombocytopenia, unspecified; E87.3 Alkalosis; I16.1 Hypertensive emergency; E87.6 Hypokalemia; D64.9 Anemia, unspecified; D72.829 Elevated white blood cell count, unspecified; E78.5 Hyperlipidemia, unspecified; R31.9 Hematuria, unspecified; N18.9 Chronic kidney disease, unspecified; I13.0 Hypertensive heart and chronic kidney disease with heart failure and stage 1 through stage 4 chronic kidney disease, or unspecified chronic kidney disease
CPT/HCPCS: 36415; 36600; 70450; 70496; 70498; 70551; 71045; 74177; 76937; 78707; 80048; 80053; 80061; 80076; 80305; 80320; 81001; 81025; 82024; 82088; 82140; 82272; 82570; 82607; 82728; 82803; 83010; 83036; 83090; 83516; 83526; 83540; 83550; 83615; 83735; 83835; 83880; 83935; 84132; 84133; 84145; 84156; 84244; 84300; 84443; 84466; 84484; 84540; 85014; 85018; 85025; 85045; 85347; 85610; 85651; 85730; 86038; 86147; 86160; 86256; 86880; 87081; 92508; 92616; 93005; 93306; 93308; 93460; 93975; 95816; 96361; 96365; 96376; 97161; 97530; 99152; 99153; 99291; A4314; A5200; A6258; A6590; A9562; C1725; C1751; C1758; C1769; C1874; C1894; C9600; G0378; J0360; J1250; J1644; J1756; J1940; J2003; J2250; J3010; J3360; J3480; J3490; J7030; J7120; Q9967